=== PATIENT | female | born 1965 | race Hispanic/Latino ===

== ENCOUNTER 2016-10-03 16:29 | Outpatient (CLI) | payer OTHER ==
--- NOTE | 2016-10-04 07:27 | XRay Report ---
ROUTINE CHEST, TWO VIEWS: HISTORY: Productive cough, fatigue. The trachea, heart, mediastinal contour, lung borrego and bony thorax are unremarkable. IMPRESSION: Unremarkable chest x-ray.
--- NOTE | 2016-10-04 07:58 | XRay Report ---
PARANASAL SINUSES: History: Productive cough, fatigue, sinus disease. Multiple views of the paranasal sinuses demonstrate normal formation with no abnormal mucoperiosteal thickening or fluid levels. The bony da silva are intact. IMPRESSION: Normal study.
== END 2016-10-03 16:30 | disposition home or self-care (01) ==
LOC: XRAY 16:29
PROVIDERS: ATTEND Internal Medicine Infectious Disease
DX: R05 Cough (principal); R53.83 Other fatigue; Z87.898 Personal history of other specified conditions
CPT/HCPCS: 70220; 71020